=== PATIENT | male | born 1995 | race Caucasian/White ===

== ENCOUNTER → 2019-03-20 | Outpatient (CLI) | payer OTHER ==
--- NOTE | 2019-03-20 16:20 | US ---
EXAMINATION TYPE: US thyroid st tissue head/neck DATE OF EXAM: 03/20/2019 COMPARISON: NONE CLINICAL HISTORY: R59.0 Localized enlarged lymph nodes. Right palpable node measures 2.5 x 0.7 x 1.7cm Left palpable node measures 2.1 x 0.8 x 1.5cm There are prominent lymph nodes but they remain subcentimeter in short axis. There is some eccentric cortical thickening with visualization of fatty hilum on the left. No concerning fluid collection freddie ntified. IMPRESSION: As above. Advise short-term ultrasound in 1-2 months time to reassess further workup may be necessary if they persist or enlarge.
== END | disposition home or self-care (01) ==
LOC: RADUSWWP 15:45
PROVIDERS: ATTEND Internal Medicine
DX: R93.89 Abnormal findings on diagnostic imaging of other specified body structures (principal); R59.0 Localized enlarged lymph nodes
CPT/HCPCS: 76536

== ENCOUNTER → 2019-03-30 | Outpatient (CLI) | payer OTHER ==
--- NOTE | 2019-03-30 16:16 | US ---
EXAMINATION TYPE: US thyroid st tissue head/neck DATE OF EXAM: 03/30/2019 COMPARISON: NONE CLINICAL HISTORY: R59.0 localized enlarged lymph nodes. Swelling GLAND SIZE: Right Lobe: 5.7 x 1.8 x 2.1 cm Overall Parenchyma: heterogenous Left Lobe: 5.5 x 1.7 x 1.7 cm Overall Parenchyma: heterogeneous Isthmus Thickness: 0.4 cm ISTHMUS: # of nodules measured in the isthmus: 1 1. 0.8 X 0.4 x 0.6 cm hypoechoic solid nodule with well-defined margins; This nodule is wider than tall and shows no intranodular vascularity. Prior size: No prior Bilateral neck scanned, no evidence of lymphadenopathy. Single nodule at isthmus. IMPRESSION: Thyroidomegaly. Solid nodule within the thyroid isthmus.
== END | disposition home or self-care (01) ==
LOC: RADUSWWP 15:27
PROVIDERS: ATTEND Internal Medicine
DX: E04.1 Nontoxic single thyroid nodule (principal)
CPT/HCPCS: 76536

== ENCOUNTER 2021-12-17 17:13 | Emergency (ER) | payer OTHER ==
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
[2021-12-17 17:26] LABS: Glucose,Whole Blood 109 mg/dL (70-110)
[2021-12-17 17:27] VITALS: TEMP 97.9
[2021-12-17 17:28] LABS: Basophils % (A) 0 %; Eosinophils # (A) 0.2 k/uL (0-0.7); Eosinophils % (A) 2 %; HCT 47.9 % (39.0-53.0); HGB 16.7 gm/dL (13.0-17.5); Lymphocytes # (A) 2.2 k/uL (1.0-4.8); Lymphocytes % (A) 25 %; MCH 30.6 pg (25.0-35.0); MCHC 34.9 g/dL (31.0-37.0); MCV 87.7 fL (80.0-100.0); Mean Platelet Volume 8.8; Monocytes # (A) 0.5 k/uL (0-1.0); Monocytes % (A) 5 %; Neutrophils # (A) 5.7 k/uL (1.3-7.7); Neutrophils % (A) 65 %; Platelet Count 275 k/uL (150-450); RBC 5.46 m/uL (4.30-5.90); RDW 13.2 % (11.5-15.5); WBC 8.7 k/uL (3.8-10.6)
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
[2021-12-17 17:41] LABS: INR 0.9 (<1.2); Partial Thromboplastin Time 24.5 sec (22.0-30.0); Prothrombin Time 10.3 sec (9.0-12.0)
[2021-12-17 17:48] LABS: ALT 102 U/L (4-49); AST 76 U/L (17-59); African American GFR (CKD) >90 (>60 ml/min/1.73 sqM); Albumin 4.9 g/dL (3.5-5.0); Alcohol <10 mg/dL; Alkaline Phosphatase 79 U/L (38-126); Anion Gap 14 mmol/L; Blood Urea Nitrogen 17 mg/dL (9-20); Calcium 9.7 mg/dL (8.4-10.2); Carbon Dioxide 26 mmol/L (22-30); Chloride 99 mmol/L (98-107); Glucose 114 mg/dL (74-99); Non-African American GFR(CKD) >90 (>60 ml/min/1.73 sqM); Potassium 3.6 mmol/L (3.5-5.1); Sodium 139 mmol/L (137-145); Total Bilirubin 0.6 mg/dL (0.2-1.3); Total Protein 8.4 g/dL (6.3-8.2)
[2021-12-17] MEDS ORDERED: MORPHINE SULFATE 4 MG/ML SYRINGE IV STA (17:48)
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
--- NOTE | 2021-12-17 18:29 | XR ---
Result: Clinical History: Right thumb pain. Comparison: None available. Technique: 3 views of the right hand. Findings: No acute fracture or dislocation is seen. The visualized osseous structures are in anatomic alignmen t. The joint spaces are preserved. There is no definite radiopaque foreign body seen. Impression: No acute osseous abnormality.
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
[2021-12-17 20:37] VITALS: BP 123/68; PULSE 91; RESP 16
== END 2021-12-17 20:49 | disposition home or self-care (01) ==
LOC: EC 17:13
DX: M79.644 Pain in right finger(s) (principal); V86.96XA Unspecified occupant of dirt bike or motor/cross bike injured in nontraffic accident, initial encounter
CPT/HCPCS: 93005; 86900; 86901; 80053; 84484; 85025; 85610; 85730; 86850; 80320; 72170; 73090; 73130; 71045; 72125; 70450; 71260; 74177; 99285; 96374; J2270; Q9967; 36415

== ENCOUNTER → 2022-01-07 | Outpatient (CLI) | payer OTHER ==
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
== END | disposition home or self-care (01) ==
LOC: RADXRMAIN 14:03
PROVIDERS: ATTEND Nurse Practitioner Family
DX: M54.50 Low back pain, unspecified (principal); S22.050D Wedge compression fracture of T5-T6 vertebra, subsequent encounter for fracture with routine healing
CPT/HCPCS: 72050; 72072

== ENCOUNTER → 2022-11-11 | Outpatient (CLI) | payer OTHER ==
--- NOTE | 2022-11-11 14:56 | US ---
EXAMINATION TYPE: US thyroid st tissue head/neck DATE OF EXAM: 11/11/2022 COMPARISON: US thyroid 03/30/2019 CLINICAL INDICATION: Male, 27 years old with history of E07.9 DISORDER OF THYROID, UNSPECIFIED; F/U f rom previous GLAND SIZE: Right Lobe: 5.4 x 1.7 x 2.0 cm Overall Parenchyma: heterogenous Left Lobe: 5.2 x 1.7 x 1.4 cm Overall Parenchyma: heterogenous Isthmus Thickness: 0.4 cm NODULES RIGHT: # of nodules measured on right: 0 LEFT: # of nodules measured on left: 0 ISTHMUS: # of nodules measured in the isthmus: 1 1. 0.7 X 0.4 x 0.7 cm mixed cystic and solid, hypoechoic nodule, which is wider than tall, with smo oth margins, without echogenic foci. TR3 Prior size: 0.8 x 0.4 x 0.6 cm Bilateral neck scanned, no evidence of lymphadenopathy. Stable sub-centimeter nodule within isthmus. IMPRESSION: Stable subcentimeter nodule within the isthmus. No new or enlarging thyroid nodules.
== END | disposition home or self-care (01) ==
LOC: RADUSWWP 13:27
PROVIDERS: ATTEND Internal Medicine Geriatric Medicine
DX: E04.1 Nontoxic single thyroid nodule (principal); E07.9 Disorder of thyroid, unspecified
CPT/HCPCS: 76536